=== PATIENT | male | born 1980 | race Caucasian/White ===

== ENCOUNTER 2017-07-29 12:17 | Emergency (ER) | payer BC ==
[2017-07-29 15:00] VITALS: BP 110/66
--- NOTE | 2017-07-29 15:47 | ED ---
Respiratory - HPI Summary HPI Summary: 36 yr old male with the complaint of fever, chills, malaise, muscle aches onset 5-6 days ago, three days later developed nasal congestion and coughing. He states he continues to feel achey,and tired, and coughing. He has pain in the left ear as well. He states that the pain in the ear began the past couple of days. No CP, SOB. He does have ache in the costophrenic area with the coughing spells. He states he went to [facility] on Saturday and tested negative for Influenza. He came here for repeat influenza test. He states he was subsequently was found to be in Afib and referred to cardiology for outpatient work up. - History of Current Complaint Chief Complaint: UCRespiratory Stated Complaint: ACHES CHILLS Time Seen by Provider: 07/29/17 15:13 Pain Intensity: 7 - Allergy/Home Medications Allergies/Adverse Reactions: Allergies Allergy/AdvReac Type Severity Reaction Status Date / Time bee venom protein (honey bee) Allergy Unknown HIVES, Verified 07/29/17 14:43 LOCALIZED SWELLING methimazole [From Tapazole] Allergy Unknown FINGEERS-IT Verified 07/29/17 14:44 MOLLY Home Medications: Home Medications Diphenhydram/PE/Dm/Acetamin/GG [Mucinex Fast-Max Day-Nite Cold] 1 each PO PRN [History] Escitalopram Oxalate [Lexapro 10 mg] 10 mg PO DAILY 07/29/17 [History Confirmed 07/29/17] Ibuprofen TAB* [Advil TAB*] 600 mg PO Q6H PRN 07/29/17 [History Confirmed ] Levothyroxine TAB* [Synthroid TAB*] 225 mcg PO DAILY 07/29/17 [History Confirmed 07/29/17] Melatonin/Herbal Comb. No.184 [Melatonin + l-Theanine] 1 cap PO 07/29/17 [ History] PMH/Surg Hx/FS Hx/Imm Hx Endocrine/Hematology History: Reports: Hx Thyroid Disease Cardiovascular History: Reports: Other Cardiovascular Problems/Disorders - afib - Surgical History Surgery Procedure, Year, and Place: NASAL SURGERY AFTER FX. RELEASE OF VEINS- LEFT TESTICLE Infectious Disease History: No Infectious Disease History: Denies: Traveled Outside the [place] in Last 30 Days - Family History Known Family History: Positive: None - Social History Lives: With Family Alcohol Use: Daily Alcohol Amount: 5 BEERS A DAY Substance Use Type: Reports: None Smoking Status (MU): Heavy Every Day Tobacco Smoker Type: Cigarettes Amount Used/How Often: 1.5 PPD Review of Systems Positive: Fever, Chills, Fatigue Positive: Sore Throat, Ear Ache, Nasal Discharge Positive: Cough Positive: Myalgia All Other Systems Reviewed And Are Negative: Yes Physical Exam Triage Information Reviewed: Yes Vital Signs On Initial Exam: Initial Vitals Temp Pulse Resp BP Pulse Ox 98 F 104 20 110/66 98 07/29/17 14:46 07/29/17 14:46 07/29/17 14:46 07/29/17 14:46 07/29/17 14:46 Vital Signs Reviewed: Yes Appearance: Positive: No Pain Distress, Well-Nourished Skin: Positive: Warm, Skin Color Reflects Adequate Perfusion Head/Face: Positive: Normal Head/Face Inspection Eyes: Positive: EOMI ENT: Positive: Pharynx normal, Nasal congestion, TM red - left Neck: Positive: Nontender Respiratory/Lung Sounds: Positive: Clear to Auscultation, Breath Sounds Present Cardiovascular: Positive: IRR, Tachycardia - about 100 Abdomen Description: Positive: Nontender Musculoskeletal: Positive: Strength/ROM Intact. Negative: Edema Left, Edema Right Neurological: Positive: Sensory/Motor Intact, Alert, Oriented to Person Place, Time, CN Intact II-III Psychiatric: Positive: Normal - Jose Carlos Coma Scale Best Eye Response: 4 - Spontaneous Best Motor Response: 6 - Obeys Commands Best Verbal Response: 5 - Oriented Coma Scale Total: 15 Diagnostics - Vital Signs Vital Signs Temp Pulse Resp BP Pulse Ox 07/29/17 14:46 98 F 104 20 110/66 98 - Laboratory Lab Results: Lab Results 07/29/17 Range/Units 15:23 Influenza A (Rapid) Negative (Negative) Influenza B (Rapid) Positive H (Negative) Lab Statement: Any lab studies that have been ordered have been reviewed, and results considered in the medical decision making process. Disposition - Course Course Of Treatment: male positive for flu B and also with otitis media left ear. Rx with Tamiflu per his request though his symptoms seem to have started over two days ago. Will Rx with Amoxicilling for the left ear. - Diagnoses Provider Diagnoses: Otitis media, Influenza B Discharge - Discharge Plan Condition: Good Disposition: HOME Prescriptions: Amoxicillin PO (*) [Amoxicillin 500 MG CAP*] 500 mg PO TID #30 cap Oseltamivir CAP* [Tamiflu CAP*] 75 mg PO BID #10 cap Patient Education Materials: Serous Otitis Media (ED), Influenza (ED) Referrals: No Primary Care Phys,NOPCP [Primary Care Provider] -
== END 2017-07-29 15:56 | disposition home or self-care (01) ==
LOC: UCCORT 12:17
DX: H66.92 Otitis media, unspecified, left ear (principal); J10.1 Influenza due to other identified influenza virus with other respiratory manifestations; E07.9 Disorder of thyroid, unspecified; F10.10 Alcohol abuse, uncomplicated; F17.210 Nicotine dependence, cigarettes, uncomplicated
CPT/HCPCS: 87502; 99212; G0463

== ENCOUNTER 2018-10-10 14:28 | Emergency (ER) | payer SELFPAY ==
[2018-10-10 14:48] VITALS: BP 126/87
--- NOTE | 2018-10-10 15:45 | ED ---
Lower Extremity - HPI Summary HPI Summary: 37 yr old male with the complaint of left ankle pain. The patient was walking down the stairs last evening and he twisted the ankle stepping down, and inverted the foot. He has pain over the lateral ankle. The pain is moderate and worse with weight bearing. - History of Current Complaint Chief Complaint: UCLowerExtremity Stated Complaint: LEFT ANKLE PAIN Time Seen by Provider: 10/10/18 14:58 Pain Intensity: 8 - Allergies/Home Medications Allergies/Adverse Reactions: Allergies Allergy/AdvReac Type Severity Reaction Status Date / Time bee venom protein (honey bee) Allergy Unknown HIVES, Verified 10/10/18 14:48 LOCALIZED SWELLING methimazole [From Tapazole] Allergy Unknown FINGEERS-IT Verified 10/10/18 14:48 MOLLY PMH/Surg Hx/FS Hx/Imm Hx Endocrine/Hematology History: Reports: Hx Thyroid Disease Cardiovascular History: Reports: Other Cardiovascular Problems/Disorders - afib - Surgical History Surgery Procedure, Year, and Place: NASAL SURGERY AFTER FX. RELEASE OF VEINS- LEFT TESTICLE Infectious Disease History: No Infectious Disease History: Denies: Traveled Outside the [place] in Last 30 Days - Family History Known Family History: Positive: None - Social History Occupation: Employed Full-time Alcohol Use: Daily Alcohol Amount: 5 BEERS A DAY Substance Use Type: Reports: None Smoking Status (MU): Former Smoker Type: Cigarettes Amount Used/How Often: 1.5 PPD Review of Systems Constitutional: Negative Positive: Other - lateral left ankle pain All Other Systems Reviewed And Are Negative: Yes Physical Exam Triage Information Reviewed: Yes Vital Signs On Initial Exam: Initial Vitals Temp Pulse Resp BP Pulse Ox 98.5 F 113 16 126/87 100 10/10/18 14:44 10/10/18 14:44 10/10/18 14:44 10/10/18 14:44 10/10/18 14:44 Vital Signs Reviewed: Yes Appearance: Positive: Well-Appearing, No Pain Distress Skin: Positive: Warm, Skin Color Reflects Adequate Perfusion Head/Face: Positive: Normal Head/Face Inspection Eyes: Positive: EOMI, EDWINA ENT: Positive: Normal ENT inspection Neck: Positive: Nontender Respiratory/Lung Sounds: Positive: Clear to Auscultation, Breath Sounds Present Cardiovascular: Positive: RRR. Negative: Murmur Abdomen Description: Positive: Nontender Musculoskeletal: Positive: Strength/ROM Intact, Other - mild STS over the lateral malleolus left ankle with slight bruise. Neurological: Positive: Sensory/Motor Intact, Alert, Oriented to Person Place, Time, CN Intact II-III Psychiatric: Positive: Normal Diagnostics - Vital Signs Vital Signs Temp Pulse Resp BP Pulse Ox 10/10/18 14:44 98.5 F 113 16 126/87 100 - Laboratory Lab Statement: Any lab studies that have been ordered have been reviewed, and results considered in the medical decision making process. - Radiology left ankle Radiology Interpretation Completed By: Radiologist - STS lateral Lower Extremity Course/Dx - Course Course Of Treatment: ankle sprain. crutch, splint. Ortho - Diagnoses Provider Diagnoses: Left ankle sprain Discharge - Sign-Out/Discharge Documenting (check all that apply): Patient Departure All imaging exams completed and their final reports reviewed: Yes - Discharge Plan Condition: Good Disposition: HOME Patient Education Materials: Ankle Sprain (ED) Referrals: No Primary Care Phys,NOPCP [Primary Care Provider] - Fabricio Mccauley MD [Medical Doctor] - 2 Days - Billing Disposition and Condition Condition: GOOD Disposition: Home
== END 2018-10-10 16:07 | disposition home or self-care (01) ==
LOC: UCCORT 14:28
DX: S93.402A Sprain of unspecified ligament of left ankle, initial encounter (principal); X50.1XXA Overexertion from prolonged static or awkward postures, initial encounter; Y93.01 Activity, walking, marching and hiking; I48.91 Unspecified atrial fibrillation; E07.9 Disorder of thyroid, unspecified; Z87.891 Personal history of nicotine dependence; Z88.8 Allergy status to other drugs, medicaments and biological substances
CPT/HCPCS: 99213; G0463

== ENCOUNTER 2019-03-03 10:42 | Emergency (ER) | payer BC ==
[2019-03-03 10:54] VITALS: BP 130/90
[2019-03-03] MEDS ORDERED: Tetracaine 0.5% OPTH.SOL 4 ML* 1 DROP BTL ONE (11:07)
[2019-03-03] MEDS ORDERED: Fluorescein Sodium TOPICAL* 1 MG TEST STRIP OPHTHALMIC ONE (11:08)
--- NOTE | 2019-03-03 11:15 | UC ---
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 Week ago Saturday. Gives him a headache behind his left eye. Denies any change in vision. Describes pain as an irritation that is intermittent. [ End ] no visual loss. + watering of eye. no corrective lenses. - History of Current Complaint Chief Complaint: UCEye Stated Complaint: LEFT EYE COMPLAINT Time Seen by Provider: 03/03/19 11:06 Hx Obtained From: Patient Onset/Duration: Sudden Onset Timing: Constant Pain Intensity: 0 Aggravating Factor(s): Blinking Alleviating Factor(s): Nothing Associated Signs And Symptoms: Positive: Drainage (Clear). Negative: Photophobia, Vision Impairment Bilateral, Swelling - Risk Factors Penetrating Injury Risk Factor: Grinding - Allergies/Home Medications Allergies/Adverse Reactions: Allergies Allergy/AdvReac Type Severity Reaction Status Date / Time bee venom protein (honey bee) Allergy Unknown HIVES, Verified 03/03/19 10:55 LOCALIZED SWELLING methimazole [From Tapazole] Allergy Unknown FINGEERS-IT Verified 03/03/19 10:55 MOLLY PMH/Surg Hx/FS Hx/Imm Hx Endocrine History: Thyroid Disease Psychological History: Depression - Surgical History Surgical History: Yes Surgery Procedure, Year, and Place: NASAL SURGERY AFTER FX. RELEASE OF VEINS- LEFT TESTICLE - Family History Known Family History: Positive: None - Social History Alcohol Use: Daily Alcohol Amount: 5 BEERS A DAY Substance Use Type: None Smoking Status (MU): Former Smoker Type: Cigarettes Amount Used/How Often: 1.5 PPD When Did the Patient Quit Smoking/Using Tobacco: December 2017 Household Exposure Type: Cigarettes - Immunization History Most Recent Tetanus Shot: pt does not recall Review of Systems All Other Systems Reviewed And Are Negative: No Constitutional: Negative: Fever Skin: Negative: Rash Eyes: Negative: Blurred Vision, Eye Redness, Photophobia ENT: Negative: Sore Throat, Sinus Congestion Neurological: Positive: Headache Physical Exam Triage Information Reviewed: Yes Appearance: Well-Appearing Vital Signs: Initial Vital Signs Temp 97.9 F 03/03/19 10:49 Pulse 100 03/03/19 10:49 Resp 15 03/03/19 10:49 BP 130/90 03/03/19 10:49 Pulse Ox 100 03/03/19 10:49 Vital Signs Reviewed: Yes Eyes: Positive: Other: - No periorbital swelling or rash. No auricular adenopathy. PERRL, EOMI. Central FB L cornea. AC's clear. Conjunctiva clear. ENT: Positive: Normal ENT inspection Neck: Positive: Supple Neurological: Positive: Alert Psychological: Positive: Age Appropriate Behavior Skin Exam: Normal Skin: Negative: Rashes Eye Complaint Course/Dx - Course Course Of Treatment: PROCEDURE: tetracaine placed L eye. eye swept with moist qtip which snags on FB but unable to remove. pt tolerated well. Eye stained, uptake at FB site only with no evidence of perforation. Office of Dr Mukherjee called, they will see pt now. pt agrees. - Differential Dx/Diagnosis Provider Diagnosis: Acute foreign body of cornea Discharge ED - Sign-Out/Discharge Documenting (check all that apply): Patient Departure All imaging exams completed and their final reports reviewed: No Studies - Discharge Plan Condition: Stable Disposition: HOME Patient Education Materials: Eye Foreign Body (ED) Referrals: Candie Mukherjee MD [Medical Doctor] - Additional Instructions: NOW - Billing Disposition and Condition Condition: STABLE Disposition: Home
== END 2019-03-03 11:38 | disposition home or self-care (01) ==
LOC: UCCORT 10:42
DX: T15.02XA Foreign body in cornea, left eye, initial encounter (principal); X58.XXXA Exposure to other specified factors, initial encounter; Y93.89 Activity, other specified; Y92.9 Unspecified place or not applicable; Z88.8 Allergy status to other drugs, medicaments and biological substances; Z91.030 Bee allergy status; Z87.891 Personal history of nicotine dependence
CPT/HCPCS: 99212; A9270-GY; G0463